=== PATIENT | female | born 1965 | race Caucasian/White ===

== ENCOUNTER 2017-03-26 09:35 | Emergency (ER) | payer BC ==
[~2017-03-26] VITALS: Wt 51.0 kg
[~2017-03-26 09:35] MED LIST: CEPH-443 PO; MECL12.574 PO; MOTRIN PRN
[2017-03-26] MEDS ORDERED: LORAZEPAM 1 MG TAB PO ONE (10:30)
[2017-03-26] MEDS ORDERED: SOD CHLORIDE 0.9% 1,000 ML IV ONE (10:30)
--- NOTE | 2017-03-26 10:30 | RADRPT ---
PROCEDURE: XR Chest. CLINICAL INDICATION: 52 of female with palpitations. TECHNIQUE: Single frontal view of the chest was obtained. COMPARISON: None FINDINGS: The soft tissues are normal. The bony elements are normal. The heart, cardiomediastinal silhouette and hilar structures are normal. The pulmonary vasculature is normal. There are vascular calcifica tions in the aortic arch. The lungs are clear. The costophrenic angles are normal. IMPRESSION: 1. Atherosclerosis of the aortic arch. 2. Mild pulmonary hyperinflation which may reflect an excellent inspiration. RPTAT:AAJJ Physician Sandra Date Time Electronically viewed and signed by Rudy Phillip Physician on 03/26/2017 10:30 KARIN/
[2017-03-26] MEDS ORDERED: LORA-441 PO (11:42)
[2017-03-26 12:06] VITALS: BP 113/65; PULSE 75; RESP 18; TEMP 98.1
--- NOTE | 2017-03-26 15:39 | ERD ---
ER Documentation Chief Complaint Date/Time DATE: 03/26/17 TIME: 15:24 Chief Complaint ANXIETY FOR THE PAST 3 WKS WITH MILD SOB . NO DISTRESS NOTED. NO HI OR SI HPI Patient is a 52-year-old female with a history of breast cancer presents the emergency department for concerns of "anxiety 3 weeks". Patient is here with her son and daughter. Patient states over the last 3 weeks she is becoming increasingly more anxious. Patient reports a decreased appetite and difficulty sleeping. Patient states she often feels as "her stomach is twisting". Patient states she will have random body shaking. Patient denies any chest pain at this time. Patient states she occasionally has shortness of breath with palpitations. Episodes of palpitations last less than 1 minute. Patient reports starting tamoxifen approximately 4 months ago. She states that her primary care physician Dr Rivas, advised her that her symptoms may be associated to taking this medication.. Patient has attempted to obtain a referral to psychiatry however the referral was initially declined. Patient is in the process of appealing the referral. Patient denies any homicidal suicidal ideations at this time. Denies any fevers, chills, nausea, vomiting, abdominal pain, back pain or loss consciousness. ROS All systems reviewed and are negative except as per history of present illness. Medications Home Meds Active Scripts Lorazepam* (Ativan*) 0.5 Mg Tablet, 0.5 MG PO Q8, #10 TAB Prov:GIANNA GARCIA PA-C 03/26/17 Meclizine Hcl* (Antivert*) 12.5 Mg Tab, 12.5 MG PO Q6H Y for dizziness, #20 TAB Prov:REJI MELENDEZ 06/25/15 Cephalexin* (Keflex*) 500 Mg Capsule, 500 MG PO QID for 7 Days, CAP Prov:REJI MELENDEZ 06/25/15 Reported Medications [Motrin Prn] No Conflict Check 11/25/09 Allergies Allergies: Coded Allergies: No Known Allergies (Verified Allergy, Mild, 05/09/10) PMhx/Soc History of Surgery: Yes (MASTECTOMY) Anesthesia Reaction: No Hx Neurological Disorder: No Hx Respiratory Disorders: No Hx Cardiac Disorders: No Hx Psychiatric Problems: No Hx Miscellaneous Medical Probl: Yes (RIGHT BREAST CA) Hx Alcohol Use: No Hx Substance Use: No Hx Tobacco Use: No Smoking Status: Never smoker FmHx Family History: No diabetes Physical Exam Vitals Vital Signs Date Time Temp Pulse Resp B/P Pulse Ox O2 Delivery O2 Flow Rate FiO2 03/26/17 12:06 98.1 75 18 113/65 98 Room Air 03/26/17 09:37 98.0 78 20 150/67 98 Physical Exam GENERAL: Well-developed, well-nourished female. Appears anxious HEAD: Normocephalic, atraumatic. EYES: Pupils are equally reactive bilaterally. EOMs grossly intact. No conjunctival erythema. ENT: Moist mucous membranes. No uvula deviation. No kissing tonsils. BREAST: Surgical incisions consistent to R breast mastectomy. No warmth or swelling. No nipple discharge. Non tender to palpation. NECK: Supple. No meningismus. Normal range of motion of the neck. LUNG: Clear to auscultation bilaterally. No rhonchi, wheezing, rales or coarse breath sounds. HEART: Regular rate and rhythm. No murmurs, rubs or gallops. BACK: No midline tenderness. EXTREMITIES: Equal pulses bilaterally. No peripheral clubbing, cyanosis or edema. No unilateral leg swelling. NEUROLOGIC: Alert and oriented. Moving all four extremities without any difficulty. Normal speech. Steady gait. SKIN: Normal color. Warm and dry. No rashes or lesions. PSYCH: Tearful, anxious. Results 24 hrs Laboratory Tests Test 03/26/17 10:45 Troponin I < 0.012ng/ml Current Medications Medications (Trade) Dose Ordered Sig/Corazon Route PRN Reason Start Time Stop Time Status Last Admin Dose Admin Sodium Chloride (NS) 1,000 ml @ 1,000 mls/hr Q1H ONCE IV 03/26/17 10:30 03/26/17 11:29 DC 03/26/17 10:28 Lorazepam (Ativan) 1 mg ONCE ONCE PO 03/26/17 10:30 03/26/17 10:31 DC 03/26/17 10:27 Procedures/MDM ED COURSE: The patient was stable throughout ED course. I kept the patient and/or family informed of laboratory and diagnostic imaging results throughout the ED course. EKG: Read by Dr. Donohue, attending physician. EKG shows normal sinus rhythm at a rate of 69 bpm. No arrhythmias, acute ST elevations or T wave changes were noted. DIAGNOSTIC IMAGING: Read by radiologist. DIAGNOSTIC IMAGING REPORT Patient: KAVEH MENSAH : 1965 Age: 52 Sex: F MR #: [id number] DOS: 03/26/17 1009 Ordering MD: GIANNA GARCIA PA-C Location: [facility] Room/Bed: PROCEDURE: XR Chest. CLINICAL INDICATION: 52 of female with palpitations. TECHNIQUE: Single frontal view of the chest was obtained. COMPARISON: None FINDINGS: The soft tissues are normal. The bony elements are normal. The heart, cardiomediastinal silhouette and hilar structures are normal. The pulmonary vasculature is normal. There are vascular calcifications in the aortic arch. The lungs are clear. The costophrenic angles are normal. IMPRESSION: 1. Atherosclerosis of the aortic arch. 2. Mild pulmonary hyperinflation which may reflect an excellent inspiration. RPTAT:AAJJ Physician Sandra Date Time Electronically viewed and signed by Rudy Phillip Physician on 03/26/2017 10:30 JM/ CC: GIANNA GARCIA PA-C MEDICATIONS GIVEN: IV fluids, Ativan Patient tolerated medication well with no adverse reactions. MEDICAL DECISION MAKING: This is a 52-year-old female presents with "anxiety 3 weeks." Patient reports decreased appetite, difficulty sleeping as well as palpitations. She denied any homicidal or suicidal ideations. Patient has seen her primary care physician for symptoms and is pending a referral to a psychiatrist for further management and start of possible psychiatric medication. Vital signs were reviewed. Patient was afebrile. Patient was not hypoxic. Cardiac exam was normal. Lung exam was normal. EKG was within normal limits. Chest x-ray was unremarkable. Troponin was negative. Patient's son and daughter were both present throughout the ED encounter. Patient's son did express his concerns with me in regards to the patient's anxiety. It does appear as if the patient has a good support system. I encouraged patient's son to be present and support his mom through her current hardships. Social work consult was obtained. See social work note. Patient did deny homicidal suicidal ideations to social work as well. Mental health resources were provided. Upon reexamination, she was noted to be resting comfortably. Patient stated she did feel improved after getting IV fluids and Ativan. At this time, the patient's presentation consistent with anxiety. Low suspicion for ACS, arrhythmia, pericarditis, PE, pneumothorax, pneumonia or pleural effusion. Low suspicion for any homicidal suicidal ideations at this time. Patient will be discharged home with a short course of Ativan. Patient was encouraged follow-up with her primary care physician for psychiatry referral/appeal process. PRESCRIPTIONS: Ativan DISCHARGE: At this time, patient is stable for discharge and outpatient management. Patient was discharged with her son and daughter. Patient was given a copy of all imaging studies and blood work obtained today. I have instructed the patient to follow-up with his/her primary care physician in 1-2 days. If symptoms persist, patient may need to see a specialist for further examinations and testing. I have instructed the patient to promptly return to the ER at any time for any new or worsening symptoms including increased increased pain, fever , nausea, vomiting, numbness, weakness, diaphoresis or LOC. The patient and/or family expressed understanding of and agreement with this plan. All questions were answered. Home care instructions were provided. Departure Diagnosis: Primary Impression: Anxiety Condition: Stable Patient Instructions: Your Body's Response to Anxiety, Understanding Anxiety Disorders Referrals: MEDINA BRISENO,SHANAE BEDOLLA MD,TWAN HUMPHREYS MD, PHD, HARKIRAT S. MD SCHNEIDER,GREG MALONE Additional Instructions: Call your primary care doctor TOMORROW for an appointment during the next 1-2 days.See the doctor sooner or return here if your condition worsens before your appointment time. Follow-up with your primary care physician for referral to psychology/ psychiatry. Advise your physician to submit appeal for mental health services. See list of mental health options provided by social work. GIANNA GARCIA PA-C Mar 26, 2017 15:39
== END 2017-03-26 12:08 | disposition home or self-care (01) ==
LOC: FTE 09:35
DX: F41.9 Anxiety disorder, unspecified (principal); R06.02 Shortness of breath; Z85.3 Personal history of malignant neoplasm of breast
CPT/HCPCS: 36415; 71010; 84484; 93005; 96360; 96361; 99285; J7030